=== PATIENT | female | born 2000 | race Native Hawaiian/Other Pacific Islander ===

== ENCOUNTER → 2024-02-28 | Outpatient (CLI) | payer MEDICAID ==
[2024-02-28 16:54] LABS: BASO # 0.07 K/mm3 (0.02-0.10); EOS # 0.23 K/mm3 (0.04-0.40); EOS % 1.7 % (1.0-5.0); HEMATOCRIT 40.2 % (37.0-47.0); HEMOGLOBIN 12.9 g/dL (12.5-16.0); LYMPH# 4.08 K/mm3 (1.50-4.00); MEAN CELL VOLUME 95 fl (78-100); MEAN CORPUSCULAR HEMOGLOBIN 31 pg (27-31); MEAN CORPUSCULAR HGB CONC 32 g/dL (33-37); MEAN PLATELET VOLUME 8.8 fl (7.4-10.4); MONO # 0.56 K/mm3 (0.20-0.80); NEU # 8.29 K/mm3 (1.40-6.50); PLATELET COUNT 461 K/mm3 (130-400); RED BLOOD COUNT 4.23 M/mm3 (4.10-5.30); RED CELL DISTRIBUTION WIDTH 12.3 % (11.5-14.5); WHITE BLOOD COUNT 13.2 K/mm3 (4.8-10.8)
[2024-02-28 17:13] LABS: ALBUMIN 4.8 g/dL (3.5-5.0); SODIUM 138 mmol/L (136-145)
[2024-02-28 17:14] LABS: CALCIUM 10.2 mg/dL (8.3-10.5)
[2024-02-28 17:16] LABS: GLUCOSE 89 mg/dL (65-105); TOTAL PROTEIN 7.3 g/dL (6.4-8.3)
[2024-02-28 17:17] LABS: CARBON DIOXIDE 18 mmol/L (22-29)
[2024-02-28 17:18] LABS: TOTAL BILIRUBIN 0.4 mg/dL (0.2-1.2)
[2024-02-28 17:21] LABS: AST-SGOT 12 U/L (5-34)
[2024-02-28 17:36] LABS: ALT/SGPT < 6 U/L (0-55)
== END ==
LOC: LAB 16:31
PROVIDERS: Family Medicine
DX: E78.5 Hyperlipidemia, unspecified (principal); E03.9 Hypothyroidism, unspecified; R73.9 Hyperglycemia, unspecified; Z51.81 Encounter for therapeutic drug level monitoring; I10 Essential (primary) hypertension; E55.9 Vitamin D deficiency, unspecified